=== PATIENT | male | born 1990 | race Caucasian/White ===

== ENCOUNTER 2018-02-11 23:07 | Emergency (ER) | payer MEDICAID, OTHER ==
[2018-02-11 23:40] LABS: URINE SOURCE CLEAN C
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
[2018-02-12 00:02] LABS: URINE BILIRUBIN NEGATIVE (NEGATIVE); URINE BLOOD SMALL (NEGATIVE); URINE GLUCOSE (UA) NEGATIVE (NEGATIVE); URINE KETONE NEGATIVE (NEGATIVE); URINE LEUKOCYTE ESTERASE NEGATIVE (NEGATIVE); URINE MICROSCOPIC INDICATED? YES; URINE NITRATE NEGATIVE (NEGATIVE); URINE PROTEIN 100 mg/dL (NEGATIVE); URINE UROBILINOGEN 0.2 E.U./dL (0.2 - 1.0)
[2018-02-12 00:24] LABS: AMPHETAMINE URINE NEGATIVE (NEGATIVE); BARBITURATES URINE NEGATIVE (NEGATIVE); COCAINE METABOLITE QUAL URINE POSITIVE (NEGATIVE); METHAMPHETAMINES QUAL URINE NEGATIVE (NEGATIVE); PHENCYCLIDINE (PCP) URINE NEGATIVE (NEGATIVE); TRICYCLICS (TCA) QUAL. URINE NEGATIVE (NEGATIVE)
[2018-02-12 00:25] LABS: BENZODIAZEPINES QUAL URINE NEGATIVE (NEGATIVE); CANNABINOID THC NEGATIVE (NEGATIVE); METHADONE URINE NEGATIVE (NEGATIVE); OPIATES (MORPHINE) QUAL. URINE POSITIVE (NEGATIVE)
[2018-02-12 00:40] LABS: URINE COLOR YELLOW
[2018-02-12 00:50] LABS: URINE CLARITY CLEAR (CLEAR)
[2018-02-12 00:57] LABS: URINE EPITHELIAL CELLS NONE SEEN /lpf (FEW); URINE RBC 0-2 /hpf (0-5); URINE WBC 0-2 /hpf (0-5)
[2018-02-12 00:58] LABS: URINE BACTERIA NONE SEEN /hpf (NONE SEEN)
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
== END 2018-02-12 01:55 | disposition home or self-care (01) ==
LOC: ER 23:07
DX: S00.83XA Contusion of other part of head, initial encounter (principal); F10.99 Alcohol use, unspecified with unspecified alcohol-induced disorder; R22.0 Localized swelling, mass and lump, head; E11.9 Type 2 diabetes mellitus without complications; Y04.0XXA Assault by unarmed brawl or fight, initial encounter; Y93.89 Activity, other specified; Y92.89 Other specified places as the place of occurrence of the external cause; Y99.8 Other external cause status
CPT/HCPCS: 36415-UA; 70450-TC; 70486-TC; 80307; 80320-TC; 81001-TC; 81003-TC; 82948-90; Z7502